=== PATIENT | female | born 1985 | race Caucasian/White ===

== ENCOUNTER 2017-02-04 12:13 | Emergency (ER) | payer SELFPAY | END 2017-02-04 13:33 | disposition home or self-care (01) | LOC: ERS 12:13 | DX: L02.211 Cutaneous abscess of abdominal wall (principal); F32.9 Major depressive disorder, single episode, unspecified | CPT/HCPCS: 87070; 87077; 87186; 87205; 99284 ==

== ENCOUNTER 2017-04-25 21:02 | Inpatient (IN) | payer SELFPAY ==
[~2017-04-25 21:02] MED LIST: ISOVUE-370 76%-LOCM 1 ML ONE
[2017-04-25 22:13] LABS: #Eosinphils 0.2 thou/uL (0.0-0.7); #Lymphocytes 4.1 thou/uL (1.20-3.40); #Monocytes 0.6 thou/uL (0.11-0.59); %Basophils 0.5 % (0.0-1.0); %Eosinophils 2.7 % (0.0-10.0); %Lymphocytes 45.7 % (21.0-51.0); %Monocytes 6.5 % (0.0-10.0); %Neutrophils 44.6 % (42.0-75.0); Hemoglobin 10.9 g/dL (12.0-16.0); Mean Corpuscular HGB CONC 32.9 g/dL (32.0-36.0); Mean Corpuscular Hemoglobin 27.6 pg (27.0-31.0); Mean Platelet Volume 6.2 fL (7.4-10.4); Platelet Count 425 thou/uL (130-400); RBC Distribution Width 14.1 % (11.5-14.5); Red Blood Cell (RBC) Count 3.96 mill/uL (4.20-5.40); White Blood Cell (WBC) Count 8.9 thou/uL (4.8-10.8)
[2017-04-25 22:24] LABS: BHCG - Serum Negative (NEGATIVE); Pregs Control Background? CLEAR/WHITE (CLR/WHITE); Pregs Control Bar Appear? YES (CONTROL BAR)
[2017-04-25 22:33] LABS: Anion Gap 12 mmol/L (10-20); BUN (Urea Nitrogen) 13 mg/dL (7.0-18.7); Calc. Creatinine Clearance 0 mL/min (70-130); Calcium 8.9 mg/dL (7.8-10.44); Carbon Dioxide 24 mmol/L (22-29); Chloride 107 mmol/L (98-107); Estimated GFR-MDRD 85; Glucose 126 mg/dL (70-105); Potassium 3.4 mmol/L (3.5-5.1); Sodium 140 mmol/L (136-145)
[2017-04-26] MEDS ORDERED: Acetaminophen 325 MG TAB PO PRN (01:36)
[2017-04-26] MEDS ORDERED: Ondansetron ODT 4 MG TAB SL PRN (01:36)
[2017-04-26] MEDS ORDERED: Ondansetron HCl/PF 4 MG/2 ML Vial IVP PRN (01:36)
[2017-04-26] MEDS ORDERED: Ketorolac Tromethamine 30 MG/ML VIAL IVP PRN (01:39)
[2017-04-26 01:49] VITALS: BMI 31.8
[2017-04-26] MEDS: Piperacillin/Tazobactam 3.375 GM in Sodium Chloride 0.9% 100 ML IVPB SCH ×2 (02:30→08:37)
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
[2017-04-26] MEDS ORDERED: traMADol HCl 50 MG TAB PO PRN (11:38)
[2017-04-26] MEDS ORDERED: Vancomycin HCl 1 GM in Premix Bag 1 BAG IVPB SCH (12:00)
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
[2017-04-26] MEDS: Ketorolac Tromethamine 30 MG/ML VIAL IVP PRN ×2 (15:19→22:01)
[2017-04-27] MEDS ORDERED: FLU VACC QS2017-18 36 mo. & older 0.5 ML SYRINGE IM ONE (09:00)
[2017-04-27] MEDS: Ketorolac Tromethamine 30 MG/ML VIAL IVP PRN ×2 (10:02→16:31)
[2017-04-28] MEDS: Ketorolac Tromethamine 30 MG/ML VIAL IVP PRN ×2 (05:58→20:06)
[2017-04-28] MEDS ORDERED: Midazolam HCl 2 mg/2 ml Vial ONE ×2 (12:38→18:03)
[2017-04-28] MEDS ORDERED: Fentanyl 250 MCG/5 ML VIAL ONE (12:38)
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
[2017-04-28] MEDS ORDERED: Propofol 200 MG/20 ML VIAL ONE (14:53)
[2017-04-28] MEDS: Vancomycin HCl 1.5 GM in Sodium Chloride 0.9% 250 ML 300 ML IVPB SCH (17:07)
[2017-04-28] MEDS ORDERED: Ondansetron HCl/PF 4 MG/2 ML Vial IVP PRN (18:06)
[2017-04-28] MEDS ORDERED: Promethazine HCl 25 MG/ML VIAL IM PRN (18:06)
[2017-04-28] MEDS ORDERED: Promethazine HCl 25 MG/ML VIAL SLOW IVP PRN (18:06)
[2017-04-28] MEDS ORDERED: Meperidine HCl/PF 25 MG/ML VIAL ONE (18:06)
[2017-04-28] MEDS ORDERED: HYDROmorphone 2 MG/ML VIAL SLOW IVP PRN (18:06)
[2017-04-28] MEDS ORDERED: HYDROmorphone 0.5 MG/0.5 ML SYRINGE ONE ×3 (18:12→18:51)
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
[2017-04-28] MEDS: HYDROcodone/Acetaminophen 10/325 mg Tablet PO PRN (20:05)
[2017-04-28] MEDS: Oxybutynin 5 MG TAB PO SCH (21:48)
[2017-04-28] MEDS: Fentanyl 100 MCG/2 ML VIAL SLOW IVP PRN (21:54)
[2017-04-28] MEDS: traMADol HCl 50 MG TAB PO PRN (23:18)
[2017-04-29] MEDS: Fentanyl 100 MCG/2 ML VIAL SLOW IVP PRN ×5 (00:58→21:43)
[2017-04-29] MEDS: Vancomycin HCl 1.5 GM in Sodium Chloride 0.9% 250 ML 300 ML IVPB SCH ×2 (01:00→13:19)
[2017-04-29] MEDS: HYDROcodone/Acetaminophen 10/325 mg Tablet PO PRN ×3 (02:25→18:14)
[2017-04-29] MEDS: Ketorolac Tromethamine 30 MG/ML VIAL IVP PRN ×3 (02:26→18:13)
[2017-04-29] MEDS: traMADol HCl 50 MG TAB PO PRN ×3 (04:15→20:42)
[2017-04-29 06:07] LABS: #Eosinphils 0.1 thou/uL (0.0-0.7); #Lymphocytes 2.5 thou/uL (1.20-3.40); #Monocytes 0.6 thou/uL (0.11-0.59); #Neutrophils 5.4 thou/uL (1.40-6.50); %Basophils 0.3 % (0.0-1.0); %Eosinophils 1.2 % (0.0-10.0); %Lymphocytes 29.2 % (21.0-51.0); %Monocytes 6.5 % (0.0-10.0); %Neutrophils 62.7 % (42.0-75.0); Hemoglobin 8.8 g/dL (12.0-16.0); Mean Corpuscular HGB CONC 32.2 g/dL (32.0-36.0); Mean Corpuscular Hemoglobin 27.3 pg (27.0-31.0); Mean Platelet Volume 6.1 fL (7.4-10.4); Platelet Count 353 thou/uL (130-400); RBC Distribution Width 14.1 % (11.5-14.5); Red Blood Cell (RBC) Count 3.23 mill/uL (4.20-5.40); White Blood Cell (WBC) Count 8.5 thou/uL (4.8-10.8)
[2017-04-29] MEDS: Oxybutynin 5 MG TAB PO SCH ×3 (06:28→20:42)
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
--- NOTE | 2017-04-29 12:56 | SPC ---
PICC PLACEMENT ULTRASOUND GUIDED VENOUS ACCESS: (Peripherally Inserted Central Catheter) DATE: 04/29/15. HISTORY: A 31 year-old female with osteomyelitis of the pubis with associated superficial soft tissue abscess anterior to the symphysis pubis, requiring long-term IV antibiotics. TECHNIQUE: Catheter caliber: 5 Moldovan. Catheter trim length: 43.5 cm. Catheter lumen number: single. Catheter tip location: superior vena cava/right atrial junction. Vein accessed: left basilic. Signed, informed consent was obtained. A tourniquet was applied at the proximal aspect of the arm. The arm was prepared and draped in the usual sterile fashion. A 25 gauge needle was used to apply bu ffered lidocaine superficially. The vein was punctured with a 21 gauge micropuncture needle under ul trasound guidance. A 0.018 inch guide wire was advanced through the micropuncture needle and into th e vein. Under fluoroscopic guidance, the guide wire was advanced to the right atrium. The PICC (per ipherally inserted central catheter) was flushed and trimmed to the appropriate length. The skin pun cture hole was widened with a blade. The micropuncture needle was exchanged over the guide wire for a 5 Moldovan peel-away dilator sheath. The dilator was exchanged over the guide wire for the PICC, whi ch was then further advanced under fluoroscopy. The sheath and guide wire were removed. The PICC wa s flushed again and secured in place at the arm. The patient tolerated the procedure well. There wa s no complication. IMPRESSION: Successful placement of PICC (peripherally inserted central catheter) roma [] POS: [facility]
[2017-04-29] MEDS ORDERED: Docusate 100 MG CAP PO SCH (14:15)
[2017-04-29] MEDS ORDERED: Heparin 1,000 UNITS/ML VIAL ONE (16:15)
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
[2017-04-29] MEDS: Docusate 100 MG CAP PO SCH (20:42)
[2017-04-30] MEDS: HYDROcodone/Acetaminophen 10/325 mg Tablet PO PRN ×4 (00:20→23:12)
[2017-04-30] MEDS: Ketorolac Tromethamine 30 MG/ML VIAL IVP PRN ×4 (00:21→21:53)
[2017-04-30] MEDS: Vancomycin HCl 1.5 GM in Sodium Chloride 0.9% 250 ML 300 ML IVPB SCH ×3 (02:05→19:52)
[2017-04-30] MEDS: traMADol HCl 50 MG TAB PO PRN ×3 (03:57→21:53)
[2017-04-30] MEDS: Fentanyl 100 MCG/2 ML VIAL SLOW IVP PRN ×4 (04:53→19:52)
[2017-04-30] MEDS: Oxybutynin 5 MG TAB PO SCH ×3 (04:54→19:53)
[2017-04-30 06:21] LABS: #Eosinphils 0.2 thou/uL (0.0-0.7); #Lymphocytes 1.7 thou/uL (1.20-3.40); #Monocytes 0.7 thou/uL (0.11-0.59); #Neutrophils 5.4 thou/uL (1.40-6.50); %Basophils 0.1 % (0.0-1.0); %Eosinophils 2.8 % (0.0-10.0); %Lymphocytes 21.3 % (21.0-51.0); %Monocytes 8.1 % (0.0-10.0); %Neutrophils 67.7 % (42.0-75.0); Hemoglobin 8.8 g/dL (12.0-16.0); Mean Corpuscular HGB CONC 31.5 g/dL (32.0-36.0); Mean Corpuscular Hemoglobin 27.2 pg (27.0-31.0); Mean Corpuscular Volume 86.4 fl (81.0-99.0); Mean Platelet Volume 6.2 fL (7.4-10.4); Platelet Count 308 thou/uL (130-400); RBC Distribution Width 14.3 % (11.5-14.5); Red Blood Cell (RBC) Count 3.23 mill/uL (4.20-5.40)
[2017-04-30] MEDS: Docusate 100 MG CAP PO SCH ×2 (09:19→19:53)
[2017-04-30] MEDS: B & O PR PRN (18:47)
[2017-05-01] MEDS: Fentanyl 100 MCG/2 ML VIAL SLOW IVP PRN ×2 (02:08→20:26)
[2017-05-01] MEDS: Ketorolac Tromethamine 30 MG/ML VIAL IVP PRN ×2 (03:25→10:17)
[2017-05-01] MEDS: Vancomycin HCl 1.5 GM in Sodium Chloride 0.9% 250 ML 300 ML IVPB SCH ×2 (06:15→15:01)
[2017-05-01] MEDS: Oxybutynin 5 MG TAB PO SCH ×3 (06:16→20:27)
[2017-05-01] MEDS: HYDROcodone/Acetaminophen 10/325 mg Tablet PO PRN ×4 (06:16→23:04)
[2017-05-01 07:27] LABS: #Basophils 0.1 thou/uL (0.0-0.2); #Eosinphils 0.2 thou/uL (0.0-0.7); #Lymphocytes 2.4 thou/uL (1.20-3.40); #Monocytes 0.5 thou/uL (0.11-0.59); #Neutrophils 3.7 thou/uL (1.40-6.50); %Eosinophils 3.6 % (0.0-10.0); %Lymphocytes 34.3 % (21.0-51.0); %Monocytes 6.7 % (0.0-10.0); %Neutrophils 54.5 % (42.0-75.0); Hemoglobin 8.5 g/dL (12.0-16.0); Mean Corpuscular HGB CONC 32.3 g/dL (32.0-36.0); Mean Corpuscular Hemoglobin 27.5 pg (27.0-31.0); Mean Corpuscular Volume 85.1 fl (81.0-99.0); Mean Platelet Volume 6.3 fL (7.4-10.4); Platelet Count 310 thou/uL (130-400); RBC Distribution Width 14.1 % (11.5-14.5); Red Blood Cell (RBC) Count 3.08 mill/uL (4.20-5.40); White Blood Cell (WBC) Count 6.9 thou/uL (4.8-10.8)
[2017-05-01] MEDS: Docusate 100 MG CAP PO SCH ×2 (08:19→20:33)
[2017-05-01] MEDS: traMADol HCl 50 MG TAB PO PRN (08:19)
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
[2017-05-01 13:49] LABS: Vancomycin, Trough 33.2 ug/mL
[2017-05-01] MEDS: Phenazopyridine HCl 97.5 MG TABLET PO SCH ×2 (14:35→20:26)
[2017-05-01] MEDS ORDERED: Vancomycin HCl 1.5 GM in Sodium Chloride 0.9% 250 ML 300 ML IVPB SCH (22:00)
[2017-05-02] MEDS: Fentanyl 100 MCG/2 ML VIAL SLOW IVP PRN ×4 (01:15→23:33)
[2017-05-02] MEDS: Vancomycin HCl 1 GM in Premix Bag 1 BAG IVPB SCH ×3 (03:19→18:14)
[2017-05-02] MEDS: B & O PR PRN ×2 (04:12→12:13)
[2017-05-02] MEDS: Oxybutynin 5 MG TAB PO SCH ×3 (06:46→20:36)
[2017-05-02] MEDS: Docusate 100 MG CAP PO SCH ×2 (08:46→20:36)
[2017-05-02] MEDS: HYDROcodone/Acetaminophen 10/325 mg Tablet PO PRN ×2 (08:46→20:35)
[2017-05-02] MEDS: Phenazopyridine HCl 97.5 MG TABLET PO SCH ×3 (08:46→20:36)
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
[2017-05-03] MEDS ORDERED: VANCOMYCIN IVPB PRN (00:33)
[2017-05-03 01:28] LABS: Vancomycin, Trough 18.4 ug/mL
[2017-05-03] MEDS: Vancomycin HCl 1 GM in Premix Bag 1 BAG IVPB SCH ×3 (03:13→17:27)
[2017-05-03] MEDS: B & O PR PRN (03:37)
[2017-05-03] MEDS: Oxybutynin 5 MG TAB PO SCH ×3 (06:48→22:05)
[2017-05-03] MEDS: Fentanyl 100 MCG/2 ML VIAL SLOW IVP PRN ×5 (06:53→20:47)
[2017-05-03] MEDS: Phenazopyridine HCl 97.5 MG TABLET PO SCH ×3 (08:25→20:48)
[2017-05-03] MEDS: Docusate 100 MG CAP PO SCH ×2 (08:25→20:48)
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
[2017-05-03] MEDS: HYDROcodone/Acetaminophen 10/325 mg Tablet PO PRN (22:05)
[2017-05-04 01:52] LABS: Vancomycin, Trough 17.9 ug/mL
[2017-05-04] MEDS: Vancomycin HCl 1 GM in Premix Bag 1 BAG IVPB SCH ×3 (02:06→17:53)
[2017-05-04] MEDS: Fentanyl 100 MCG/2 ML VIAL SLOW IVP PRN (02:10)
[2017-05-04] MEDS: Oxybutynin 5 MG TAB PO SCH ×3 (05:26→20:41)
[2017-05-04] MEDS: HYDROcodone/Acetaminophen 10/325 mg Tablet PO PRN ×2 (05:26→10:27)
[2017-05-04] MEDS ORDERED: Magnesium Citrate 300 ML BOT PO SCH (09:00)
[2017-05-04] MEDS: Phenazopyridine HCl 97.5 MG TABLET PO SCH ×3 (10:21→20:41)
[2017-05-04] MEDS: Docusate 100 MG CAP PO SCH ×2 (10:21→20:41)
[2017-05-04] MEDS: Nicotine 14 MG PATCH TD SCH (10:26)
[2017-05-04] MEDS: Ketorolac Tromethamine 30 MG/ML VIAL IVP PRN ×3 (11:46→23:48)
[2017-05-05] MEDS: Vancomycin HCl 1 GM in Premix Bag 1 BAG IVPB SCH ×2 (02:15→11:23)
[2017-05-05] MEDS: HYDROcodone/Acetaminophen 10/325 mg Tablet PO PRN ×3 (03:26→18:45)
[2017-05-05] MEDS: Oxybutynin 5 MG TAB PO SCH ×3 (06:07→21:22)
[2017-05-05] MEDS: Ketorolac Tromethamine 30 MG/ML VIAL IVP PRN ×3 (06:08→18:46)
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
[2017-05-05] MEDS: Phenazopyridine HCl 97.5 MG TABLET PO SCH ×3 (09:00→21:22)
[2017-05-05] MEDS: Docusate 100 MG CAP PO SCH ×2 (09:01→21:22)
[2017-05-05] MEDS: Nicotine 14 MG PATCH TD SCH (09:01)
[2017-05-05] MEDS: Fentanyl 100 MCG/2 ML VIAL SLOW IVP PRN (09:07)
[2017-05-05 09:47] LABS: Vancomycin, Trough 22.8 ug/mL
[2017-05-05] MEDS: Vancomycin HCl 750 MG in Sodium Chloride 0.9% 250 ML 250 ML IVPB SCH (21:21)
[2017-05-06] MEDS: Ketorolac Tromethamine 30 MG/ML VIAL IVP PRN ×3 (00:33→18:07)
[2017-05-06] MEDS: Vancomycin HCl 750 MG in Sodium Chloride 0.9% 250 ML 250 ML IVPB SCH ×3 (05:02→20:29)
[2017-05-06] MEDS: Oxybutynin 5 MG TAB PO SCH ×3 (05:02→20:29)
[2017-05-06 08:15] LABS: #Basophils 0.1 thou/uL (0.0-0.2); #Eosinphils 0.4 thou/uL (0.0-0.7); #Lymphocytes 2.5 thou/uL (1.20-3.40); #Monocytes 0.5 thou/uL (0.11-0.59); #Neutrophils 2.6 thou/uL (1.40-6.50); %Basophils 1.2 % (0.0-1.0); %Eosinophils 6.5 % (0.0-10.0); %Lymphocytes 40.9 % (21.0-51.0); %Monocytes 8.1 % (0.0-10.0); %Neutrophils 43.4 % (42.0-75.0); Hemoglobin 10.6 g/dL (12.0-16.0); Mean Corpuscular Hemoglobin 26.5 pg (27.0-31.0); Mean Corpuscular Volume 85.4 fl (81.0-99.0); Mean Platelet Volume 6.2 fL (7.4-10.4); Platelet Count 418 thou/uL (130-400); RBC Distribution Width 14.3 % (11.5-14.5); Red Blood Cell (RBC) Count 3.99 mill/uL (4.20-5.40)
[2017-05-06] MEDS: Docusate 100 MG CAP PO SCH ×2 (09:41→20:29)
[2017-05-06] MEDS: Nicotine 14 MG PATCH TD SCH (09:41)
[2017-05-06] MEDS: Phenazopyridine HCl 97.5 MG TABLET PO SCH ×3 (09:41→20:29)
[2017-05-06] MEDS: HYDROcodone/Acetaminophen 10/325 mg Tablet PO PRN (18:15)
[2017-05-06 19:26] LABS: Vancomycin, Trough 17.8 ug/mL
[2017-05-07] MEDS: Ketorolac Tromethamine 30 MG/ML VIAL IVP PRN ×4 (00:20→21:18)
[2017-05-07] MEDS: Oxybutynin 5 MG TAB PO SCH ×3 (05:27→21:20)
[2017-05-07] MEDS: Vancomycin HCl 750 MG in Sodium Chloride 0.9% 250 ML 250 ML IVPB SCH ×3 (05:27→20:56)
[2017-05-07] MEDS: HYDROcodone/Acetaminophen 10/325 mg Tablet PO PRN ×3 (05:30→17:50)
[2017-05-07] MEDS: Phenazopyridine HCl 97.5 MG TABLET PO SCH ×3 (07:55→21:20)
[2017-05-07] MEDS: Docusate 100 MG CAP PO SCH ×2 (07:55→21:20)
[2017-05-07] MEDS: Nicotine 14 MG PATCH TD SCH (07:56)
[2017-05-07] MEDS ORDERED: Magnesium Citrate 300 ML BOT PO SCH (17:15)
[2017-05-07 20:26] LABS: Vancomycin, Trough 15.7 ug/mL
[2017-05-08] MEDS: Vancomycin HCl 750 MG in Sodium Chloride 0.9% 250 ML 250 ML IVPB SCH ×3 (03:04→22:22)
[2017-05-08] MEDS: Ketorolac Tromethamine 30 MG/ML VIAL IVP PRN ×3 (04:22→18:12)
[2017-05-08] MEDS: Oxybutynin 5 MG TAB PO SCH ×3 (05:39→21:27)
[2017-05-08] MEDS: HYDROcodone/Acetaminophen 10/325 mg Tablet PO PRN ×2 (10:27→15:46)
[2017-05-08] MEDS: Docusate 100 MG CAP PO SCH ×2 (10:28→21:27)
[2017-05-08] MEDS: Phenazopyridine HCl 97.5 MG TABLET PO SCH ×3 (10:28→21:27)
[2017-05-08] MEDS: Nicotine 14 MG PATCH TD SCH (10:29)
[2017-05-09] MEDS: Vancomycin HCl 750 MG in Sodium Chloride 0.9% 250 ML 250 ML IVPB SCH ×3 (06:04→21:05)
[2017-05-09] MEDS: Oxybutynin 5 MG TAB PO SCH ×3 (06:05→21:07)
[2017-05-09] MEDS: Ketorolac Tromethamine 30 MG/ML VIAL IVP PRN (06:09)
[2017-05-09] MEDS: Nicotine 14 MG PATCH TD SCH (09:25)
[2017-05-09] MEDS: Docusate 100 MG CAP PO SCH ×2 (09:25→23:57)
[2017-05-09] MEDS: Phenazopyridine HCl 97.5 MG TABLET PO SCH ×3 (09:57→21:07)
[2017-05-09 11:44] LABS: Vancomycin, Trough 19.6 ug/mL
[2017-05-09] MEDS ORDERED: HYDROcodone/Acetaminophen 10/325 mg Tablet PO PRN (12:05)
[2017-05-09] MEDS: HYDROcodone/Acetaminophen 10/325 mg Tablet PO PRN (21:06)
[2017-05-10] MEDS: HYDROcodone/Acetaminophen 10/325 mg Tablet PO PRN ×2 (05:15→19:56)
[2017-05-10] MEDS: Vancomycin HCl 750 MG in Sodium Chloride 0.9% 250 ML 250 ML IVPB SCH ×3 (05:15→19:55)
[2017-05-10] MEDS: Oxybutynin 5 MG TAB PO SCH ×3 (05:16→21:48)
[2017-05-10] MEDS: Nicotine 14 MG PATCH TD SCH (08:16)
[2017-05-10] MEDS: Docusate 100 MG CAP PO SCH ×2 (08:16→19:57)
[2017-05-10] MEDS: Phenazopyridine HCl 97.5 MG TABLET PO SCH ×3 (09:02→19:56)
[2017-05-11] MEDS: Vancomycin HCl 750 MG in Sodium Chloride 0.9% 250 ML 250 ML IVPB SCH ×3 (05:01→20:36)
[2017-05-11] MEDS: Oxybutynin 5 MG TAB PO SCH ×3 (05:01→21:32)
[2017-05-11] MEDS: HYDROcodone/Acetaminophen 10/325 mg Tablet PO PRN ×3 (06:28→20:37)
[2017-05-11] MEDS: Docusate 100 MG CAP PO SCH ×2 (08:42→20:37)
[2017-05-11] MEDS: Nicotine 14 MG PATCH TD SCH (08:42)
[2017-05-11] MEDS: CeleCOXIB 100 MG CAP PO SCH ×2 (08:52→20:37)
[2017-05-11] MEDS: Phenazopyridine HCl 97.5 MG TABLET PO SCH ×3 (08:53→20:36)
[2017-05-11 11:58] LABS: Vancomycin, Trough 17.6 ug/mL
[2017-05-12] MEDS: Vancomycin HCl 750 MG in Sodium Chloride 0.9% 250 ML 250 ML IVPB SCH ×3 (04:40→21:38)
[2017-05-12] MEDS: HYDROcodone/Acetaminophen 10/325 mg Tablet PO PRN ×2 (04:43→16:07)
[2017-05-12] MEDS: Oxybutynin 5 MG TAB PO SCH ×3 (05:26→21:39)
[2017-05-12] MEDS: CeleCOXIB 100 MG CAP PO SCH ×2 (10:58→21:39)
[2017-05-12] MEDS: Docusate 100 MG CAP PO SCH ×2 (10:58→21:39)
[2017-05-12] MEDS: traMADol HCl 50 MG TAB PO PRN ×2 (10:58→21:38)
[2017-05-12] MEDS: Phenazopyridine HCl 97.5 MG TABLET PO SCH ×3 (11:00→21:39)
[2017-05-12] MEDS: Nicotine 14 MG PATCH TD SCH (11:00)
[2017-05-13] MEDS: Vancomycin HCl 750 MG in Sodium Chloride 0.9% 250 ML 250 ML IVPB SCH ×3 (04:44→20:37)
[2017-05-13] MEDS: Oxybutynin 5 MG TAB PO SCH ×3 (05:13→20:37)
[2017-05-13] MEDS: Nicotine 14 MG PATCH TD SCH (10:53)
[2017-05-13] MEDS: HYDROcodone/Acetaminophen 10/325 mg Tablet PO PRN (10:53)
[2017-05-13] MEDS: CeleCOXIB 100 MG CAP PO SCH ×2 (10:53→20:37)
[2017-05-13] MEDS: Phenazopyridine HCl 97.5 MG TABLET PO SCH ×3 (10:53→20:37)
[2017-05-13] MEDS: Docusate 100 MG CAP PO SCH ×2 (10:53→20:37)
[2017-05-13 11:30] LABS: Vancomycin, Trough 17.9 ug/mL
[2017-05-14] MEDS: Oxybutynin 5 MG TAB PO SCH (04:41)
[2017-05-14] MEDS: HYDROcodone/Acetaminophen 10/325 mg Tablet PO PRN (04:41)
[2017-05-14] MEDS: Vancomycin HCl 750 MG in Sodium Chloride 0.9% 250 ML 250 ML IVPB SCH (04:41)
[2017-05-14 08:34] VITALS: BP 114/63; TEMP 98.4
[2017-05-14] MEDS: Docusate 100 MG CAP PO SCH (08:48)
[2017-05-14] MEDS: Phenazopyridine HCl 97.5 MG TABLET PO SCH (08:48)
[2017-05-14] MEDS: CeleCOXIB 100 MG CAP PO SCH (08:48)
== END 2017-05-14 11:05 | disposition short-term general hospital (02) | DRG 496 ==
LOC: ERS 21:02 → SURG A 04-26 01:34 → OBSVTOIN 04-26 01:34 → INTOOBSV 04-26 01:34
PROVIDERS: ADMIT Specialist; ATTEND Orthopaedic Surgery
PROC: 0QP304Z Removal of Internal Fixation Device from Left Pelvic Bone, Open Approach (ICD-10-PCS; 2017-04-28)
PROC: 0QP204Z Removal of Internal Fixation Device from Right Pelvic Bone, Open Approach (ICD-10-PCS; 2017-04-28)
PROC: 0TQB0ZZ Repair Bladder, Open Approach (ICD-10-PCS; 2017-04-28)
PROC: 02HV33Z Insertion of Infusion Device into Superior Vena Cava, Percutaneous Approach (ICD-10-PCS; principal; 2017-04-29)
PROC: B518YZA Fluoroscopy of Superior Vena Cava using Other Contrast, Guidance (ICD-10-PCS; 2017-04-29)
DX: T84.69XA Infection and inflammatory reaction due to internal fixation device of other site, initial encounter (principal); T81.31XA Disruption of external operation (surgical) wound, not elsewhere classified, initial encounter; M86.68 Other chronic osteomyelitis, other site; K56.7 Ileus, unspecified; T81.4XXA Infection following a procedure, initial encounter; N99.71 Accidental puncture and laceration of a genitourinary system organ or structure during a genitourinary system procedure; F17.210 Nicotine dependence, cigarettes, uncomplicated; B99.8 Other infectious disease; B95.62 Methicillin resistant Staphylococcus aureus infection as the cause of diseases classified elsewhere; F32.9 Major depressive disorder, single episode, unspecified; Y79.3 Surgical instruments, materials and orthopedic devices (including sutures) associated with adverse incidents; Z75.1 Person awaiting admission to adequate facility elsewhere; N32.89 Other specified disorders of bladder; N73.8 Other specified female pelvic inflammatory diseases; Y83.8 Other surgical procedures as the cause of abnormal reaction of the patient, or of later complication, without mention of misadventure at the time of the procedure; N99.4 Postprocedural pelvic peritoneal adhesions
CPT/HCPCS: 36415; 36569; 72170; 72190; 74177; 80048; 80202; 83605; 84703; 85025; 85652; 86140; 86850; 86900; 86901; 87070; 87077; 87186; 87205; 96365; 96374; 99406; A4216; C1751; J1170; J1642; J1644; J1885; J2175; J2250; J2543; J2704; J3010; J3370; J7050

== ENCOUNTER 2017-05-28 17:17 | Emergency (ER) | payer SELFPAY ==
[~2017-05-28 17:17] MED LIST changes: +Iopamidol 370 76% 50 ML VIAL FS ONE
[2017-05-28 21:34] LABS: Bilirubin Negative (Negative); Blood, Urine Large (Negative); Clarity CLOUDY (Clear); Glucose, Urine (Dipstick) Negative (Negative); Leukocyte Large (Negative); Nitrite Positive (Negative); Protein, Urine (Dipstick) 30 mg/dL (Neg-Trace); Specific Gravity, Urine 1.024 (1.002-1.036); Urobilinogen 0.2 mg/dL (0.2-1.0)
[2017-05-28 21:37] LABS: Bacteria/HPF 4+ HPF (None Seen); Hyaline Casts/LPF 0-3 HYALINE CAST LPF (0-3 Hyaline); Squamous Epithelial None Seen HPF (0-3)
[2017-05-28 21:38] LABS: Yeast-AUWi Flag 25.7 (0-25.0)
[2017-05-28 21:48] LABS: Yeast-All Forms None Seen HPF (None Seen)
--- NOTE | 2017-05-28 21:52 | RAD ---
AP PELVIS: 05/28/17 HISTORY: Assess Pereira catheter. Contrast is injected through an indwelling Pereira catheter. The bladder contour is normal. The Pereira catheter appears normally positioned and normally functionin g based on this post injection film. Bowel gas pattern unremarkable. Postoperative changes in the sac rum. Deformity of the pelvis from old injury. IMPRESSION: Bladder contour is normal indicating normal position and function of the Pereira catheter. POS: [facility]
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
[2017-05-28 22:58] LABS: Hemoglobin 10.1 g/dL (12.0-16.0); Mean Corpuscular HGB CONC 31.4 g/dL (32.0-36.0); Mean Corpuscular Hemoglobin 26.2 pg (27.0-31.0); Mean Corpuscular Volume 83.5 fl (81.0-99.0); Mean Platelet Volume 6.7 fL (7.4-10.4); Platelet Count 355 thou/uL (130-400); RBC Distribution Width 15.3 % (11.5-14.5); Red Blood Cell (RBC) Count 3.85 mill/uL (4.20-5.40); White Blood Cell (WBC) Count 7.8 thou/uL (4.8-10.8)
[2017-05-28 23:11] LABS: ALT (SGPT) 8 U/L (8-55); AST (SGOT) 12 U/L (5-34); Albumin 3.7 g/dL (3.5-5.0); Alkaline Phosphatase 103 U/L (40-150); Anion Gap 15 mmol/L (10-20); BUN (Urea Nitrogen) 15 mg/dL (7.0-18.7); Bilirubin, Total 0.4 mg/dL (0.2-1.2); Calc. Creatinine Clearance 0 mL/min (70-130); Calcium 8.7 mg/dL (7.8-10.44); Carbon Dioxide 21 mmol/L (22-29); Chloride 103 mmol/L (98-107); Estimated GFR-MDRD Greater than 90; Globulin 2.7 g/dL (2.4-3.5); Glucose 116 mg/dL (70-105); Potassium 3.5 mmol/L (3.5-5.1); Protein, Total 6.4 g/dL (6.0-8.3); Sodium 135 mmol/L (136-145)
[2017-05-28 23:22] LABS: Band 5 % (5-11); Eosinophils 1 % (0-10); Lymphocytes 51 % (21-51); MDiff Complete? YES; Monocytes 4 % (0-10); Neutrophil 39 % (42-75)
== END 2017-05-28 23:45 | disposition home or self-care (01) ==
LOC: ERS 17:17
DX: N39.0 Urinary tract infection, site not specified (principal); N83.202 Unspecified ovarian cyst, left side; N83.201 Unspecified ovarian cyst, right side; F32.9 Major depressive disorder, single episode, unspecified; F17.210 Nicotine dependence, cigarettes, uncomplicated; Z71.6 Tobacco abuse counseling
CPT/HCPCS: 72170; 74177; 80053; 81003; 81015; 85025; 87077; 87086; 87186; 99406; J1642

== ENCOUNTER 2017-06-13 17:35 | Emergency (ER) | payer OTHER, SELFPAY ==
--- NOTE | 2017-06-13 18:21 | RAD ---
TWO VIEWS CHEST: History: Cough and congestion for one week. FINDINGS: Two views of the chest show normal sized cardiomediastinal silhouette. There is no evidence of consol idation, mass, or pleural effusion. The bones are unremarkable. The patient has an left upper extremi ty PICC line with its tip in the superior vena cava. IMPRESSION: No evidence of acute cardiopulmonary disease. POS: [facility]
== END 2017-06-13 19:11 | disposition home or self-care (01) ==
LOC: ERS 17:35
DX: J40 Bronchitis, not specified as acute or chronic (principal); F32.9 Major depressive disorder, single episode, unspecified; F17.210 Nicotine dependence, cigarettes, uncomplicated
CPT/HCPCS: 71046

== ENCOUNTER 2017-08-18 19:16 | Emergency (ER) | payer OTHER, SELFPAY | END 2017-08-18 20:56 | disposition home or self-care (01) | LOC: ERS 19:16 | DX: L97.929 Non-pressure chronic ulcer of unspecified part of left lower leg with unspecified severity (principal); L97.919 Non-pressure chronic ulcer of unspecified part of right lower leg with unspecified severity; L98.499 Non-pressure chronic ulcer of skin of other sites with unspecified severity; F15.10 Other stimulant abuse, uncomplicated; J45.909 Unspecified asthma, uncomplicated; F17.210 Nicotine dependence, cigarettes, uncomplicated | CPT/HCPCS: 99282 ==

== ENCOUNTER 2018-04-14 14:18 | Inpatient (IN) | payer MEDICAID, SELFPAY ==
[2018-04-14 16:08] LABS: ALT (SGPT) 20 U/L (8-55); AST (SGOT) 18 U/L (5-34); Albumin 3.3 g/dL (3.5-5.0); Alkaline Phosphatase 131 U/L (40-150); Anion Gap 15 mmol/L (10-20); BUN (Urea Nitrogen) 9 mg/dL (7.0-18.7); Bilirubin, Total 0.5 mg/dL (0.2-1.2); Calc. Creatinine Clearance 0 mL/min (70-130); Calcium 8.8 mg/dL (7.8-10.44); Carbon Dioxide 25 mmol/L (22-29); Chloride 93 mmol/L (98-107); Estimated GFR-MDRD Greater than 90; Glucose 106 mg/dL (70-105); Potassium 3.7 mmol/L (3.5-5.1); Protein, Total 7.3 g/dL (6.0-8.3); Sodium 129 mmol/L (136-145)
[2018-04-14 16:09] LABS: Mean Corpuscular Hemoglobin 24.5 pg (27.0-31.0); Mean Corpuscular Volume 74.4 fL (78.0-98.0); Mean Platelet Volume 7.6 fL (7.4-10.4); Platelet Count 364 thou/uL (130-400); RBC Distribution Width 17.2 % (11.5-14.5); Red Blood Cell (RBC) Count 4.49 mill/uL (4.20-5.40)
[2018-04-14 16:44] LABS: #Eosinphils 0.1 thou/uL (0.0-0.7); #Lymphocytes 2.1 thou/uL (1.20-3.40); #Monocytes 0.9 thou/uL (0.11-0.59); #Neutrophils 8.8 thou/uL (1.40-6.50); %Basophils 0.7 % (0.0-1.0); %Eosinophils 0.6 % (0.0-10.0); %Lymphocytes 17.5 % (21.0-51.0); %Monocytes 8.1 % (0.0-10.0); %Neutrophils 74.3 % (42.0-75.0); Anisocytosis SLIGHT = 6-15 cells (100X) (0-5/hpf); Hypochromia SLIGHT = 6-15 cells (100X) (0-5/hpf); MDiff Complete? YES; Microcytosis SLIGHT = 6-15 cells (100X) (0-5/hpf); PLT Morphology Comment Appears Adequate
[2018-04-14 17:07] LABS: Bilirubin Negative (Negative); Blood, Urine Large (Negative); Clarity CLOUDY (Clear); Glucose, Urine (Dipstick) Negative (Negative); Leukocyte Moderate (Negative); Nitrite Positive (Negative); Protein, Urine (Dipstick) 30 mg/dL (Neg-Trace); Specific Gravity, Urine 1.017 (1.002-1.036)
[2018-04-14 17:11] LABS: Bacteria/HPF 4+ HPF (None Seen); Hyaline Casts/LPF 0-3 HYALINE CAST LPF (0-3 Hyaline); Pathc Cast-AUWi Flag 0.14 (0-2.49); RBC/HPF 21-50 HPF (0-3)
[2018-04-14] MEDS ORDERED: Acetaminophen 500 MG TAB ONE (17:21)
[2018-04-14] MEDS ORDERED: Vancomycin HCl 1.5 GM in Sodium Chloride 0.9% 250 ML 300 ML IVPB SCH (17:30)
[2018-04-14] MEDS ORDERED: Piperacillin/Tazobactam 2.25 GM in Sodium Chloride 0.9% 100 ML IVPB SCH (17:30)
--- NOTE | 2018-04-14 18:03 | PDOC.FPRHP ---
- History of Present Illness Chief Complaint: vomiting/diarrhea History of Present Illness: Ms. Uribe presents to the ED after feeling bad for the past 5 days. She reports on wednesday she started having nausea, vomiting, diarrhea, temps as high as 103, and neck pain. She denies any chest pain, shortness of breath, or visual changes. She has a history of MRSA bacteriemia and hardware infection. She is an on again off again heroin user. She reports use of china white, laced with fentanyl. Denies skin popping or cleaning before injecting. The last time she used was 4 hours [employer]. She reports usually having withdrawal symptoms at about 4 hours. ED Course: CBC, CMP, CXR, LA, UA/UCx, BCx vanc, 1L NS - Allergies/Adverse Reactions Allergies Allergy/AdvReac Type Severity Reaction Status Date / Time No Known Allergies Allergy Verified 04/26/17 01:57 - Home Medications Medication Instructions Recorded Confirmed Type No Known 04/15/18 04/15/18 History - History PMHx: MRSA/endocarditis 2016 (PICC line DCd in jun 27), asthma PSHx: pelvic fracture repair- infected hardware FHx: cancer, asthma Social: current pack a day smoker, hx of IV drug abuse - Review of Systems General: reports: fever/chills, fatigue. denies: weight/appetite/sleep changes , night sweats Eyes: denies: eye pain, vision changes ENT: denies: nasal congestion Respiratory: denies: cough, congestion, shortness of breath Cardiovascular: denies: chest pain, palpitation, edema Gastrointestinal: reports: nausea, vomiting, diarrhea, abdominal pain. denies: constipation, GI bleeding Genitourinary: reports: dysuria. denies: incontinence Skin: denies: rashes, lesions Musculoskeletal: reports: pain, tenderness, arthritis/arthralgias Neurological: denies: numbness, syncope - Vital signs BP: 106/64 HR: 117 RR: 19 Tmax: 102.5 Pox: 98% on RA Wt: 59kg - Physical Exam Constitutional: NAD HEENT: normocephalic and atraumatic, grossly normal vision, grossly normal hearing Neck: supple, trachea midline, no LAD, other (nuchal rigidity, tenderness over cspine) Chest: no-tender to palpation, no lesions Heart: RRR, other (murmur present) Lungs: CTAB, no respiratory distress, good air movement Abdomen: soft, non-tender, no masses/distention Musculoskeletal: normal structure, ROM grossly normal Neurological: no focal deficit, CN II-XII intact Skin: no rash/lesions, good turgor Heme/Lymphatic: no unusual bruising or bleeding FMR H&P: Results - Labs Result Diagrams: 04/14/18 15:37 04/14/18 15:37 Lab results: WBC 12.0 thou/uL (4.8-10.8) H 04/14/18 15:37 Hgb 11.0 g/dL (12.0-16.0) L 04/14/18 15:37 Hct 33.4 % (36.0-47.0) L 04/14/18 15:37 MCV 74.4 fL (78.0-98.0) L 04/14/18 15:37 Plt Count 364 thou/uL (130-400) 04/14/18 15:37 Neutrophils % 74.3 % (42.0-75.0) 04/14/18 15:37 Sodium 129 mmol/L (136-145) L 04/14/18 15:37 Potassium 3.7 mmol/L (3.5-5.1) 04/14/18 15:37 Chloride 93 mmol/L (98-107) L 04/14/18 15:37 Carbon Dioxide 25 mmol/L (22-29) 04/14/18 15:37 BUN 9 mg/dL (7.0-18.7) 04/14/18 15:37 Creatinine 0.71 mg/dL (0.6-1.1) 04/14/18 15:37 Glucose 106 mg/dL (70-105) H 04/14/18 15:37 Lactic Acid 1.7 mmol/L (0.5-2.2) 04/14/18 15:37 Calcium 8.8 mg/dL (7.8-10.44) 04/14/18 15:37 Total Bilirubin 0.5 mg/dL (0.2-1.2) 04/14/18 15:37 AST 18 U/L (5-34) 04/14/18 15:37 ALT 20 U/L (8-55) 04/14/18 15:37 Alkaline Phosphatase 131 U/L (40-150) 04/14/18 15:37 Serum Total Protein 7.3 g/dL (6.0-8.3) 04/14/18 15:37 Albumin 3.3 g/dL (3.5-5.0) L 04/14/18 15:37 Urine Ketones Negative mg/dL (Negative) 04/14/18 16:55 Urine Blood Large (Negative) H 04/14/18 16:55 Urine Nitrite Positive (Negative) H 04/14/18 16:55 Ur Leukocyte Esterase Moderate (Negative) H 04/14/18 16:55 Urine RBC 21-50 HPF (0-3) H 04/14/18 16:55 Urine WBC Greater Than 50-TNTC HPF (0-3) H 04/14/18 16:55 Ur Squamous Epith Cells 4-6 HPF (0-3) H 04/14/18 16:55 Urine Bacteria 4+ HPF (None Seen) H 04/14/18 16:55 FMR H&P: A/P - Problem List (1) Sepsis secondary to UTI Status: Acute Code(s): A41.9 - SEPSIS, UNSPECIFIED ORGANISM; N39.0 - URINARY TRACT INFECTION, SITE NOT SPECIFIED (2) IV drug abuse Status: Acute Code(s): F19.10 - OTHER PSYCHOACTIVE SUBSTANCE ABUSE, UNCOMPLICATED (3) Opioid withdrawal Status: Acute Code(s): F11.23 - OPIOID DEPENDENCE WITH WITHDRAWAL (4) Asthma Status: Acute Code(s): J45.909 - UNSPECIFIED ASTHMA, UNCOMPLICATED - Plan Sepsis 2/2 UTI - WBC, tachy, febrile. UA +, UCx pending, BCx collected - concern for endocarditis, MRSA bacteremia - procal, TTE pending - Linda consult in AM, consider cards consult pending TTE - s/p 1L NS in ED. additional bolus, run LR 125 - empiric abx vanc + zosyn IVDA - monitor visitors, Narcan for opioid reversal - hx of MRSA bacteremia, see above Opiod withdrawal - monitor respiratory status, continuous O2 monitoring, O2 PRN - vital signs q4hr Asthma - aware, monitor - proair PRN Disposition/LOS: admit to telemetry for further evaluation of infectious sources FMR H&P: Upper Level - Pertinent history 32 y/o IVDU with Hx/o endocarditis(2016), MRSA bactremia this year presents with Fever, chills, nausea, vomiting for 3-4 days. States he does heroin and meth and has agitation withing 4hrs w/o use of opiod. Agree with [employer] Developer's HPI. - Pertinent findings I agree with consumer insights intern's exam findings. Additionally, NEURO: no nuchal rigidity. MAEW w/o focal deficits CARDIO: Tachycardic, 3/6 systolic murmur. - Plan Date/Time: 04/14/18 1801 I, [place] [facility], have evaluated this patient and agree with findings/plan as outlined by consumer insights intern resident. Pertinent changes/additions are listed here. 1. Sepsis 2/2 UTI - Also very concerned for bactremia/Endocarditis given IVDU and history. WBCs elevated, tachy, & febrile. S/p 1L NS in ED. Will give another bolus and MIVF and closely monitor vital signs on Telemetry floor. Broad spectrum empiric abx initiated. ED did not perform LP, but consider if sx not improving. No meningeal signs, although does have slight neck soreness. TTE orderd. She does have a chronic murmur and hx/o endocarditis 2yrs ago. - ID consult in AM, consider cardiology consult pending TTE. 2. Multisubstance Abuse- Admits to regular Opiod and Meth use. Will order UDS. Monitor for s/s of withdrawal and medicate as necessary. 3. History of Asthma - Inhaler as needed; no acute issues and will continue to monitor 4. Hyponatremia - unknown etiology. Will replete with NS and recheck in AM. Attending Addendum - Attending Addendum Date/Time: 04/18/18 5422 I personally evaluated the patient and discussed the management with Dr. Dubois at time of admission. I agree with the History, Examination, Assessment and Plan documented above with any addition or exceptions noted below. I did not find evidence of meningitis on exam at time of admission.
--- NOTE | 2018-04-14 19:56 | RAD ---
RADIOGRAPH CHEST 1 VIEW: Date: 04/14/18 Time: 4:34 p.m. HISTORY: 32-year-old female with cough and fever. COMPARISON: 06/13/17 FINDINGS: There is a new subtle finding of several faint nodular densities in the lateral aspect of the right l ower lung zone. No consolidation or pulmonary edema. Cardiomediastinal silhouette is normal. Lateral costophrenic angles are shape. No pneumothorax. IMPRESSION: 1. Possible right sided pulmonary nodules, perhaps representing a pulmonary infectious process w ith atypical organism. 2. Consider chest CT. ARELIS [] POS: [facility]
[2018-04-14] MEDS ORDERED: Senokot S 8.6-50 MG TAB PO PRN (21:54)
[2018-04-14] MEDS ORDERED: Acetaminophen 325 MG TAB PO PRN (21:54)
[2018-04-14] MEDS ORDERED: Naloxone HCl 0.4 mg/ml Vial IV PRN (21:54)
[2018-04-14] MEDS ORDERED: Nicotine 14 MG PATCH TD SCH (21:54)
[2018-04-14] MEDS ORDERED: Ondansetron PF 4 MG/2 ML Vial IVP PRN (21:54)
[2018-04-14] MEDS ORDERED: Ondansetron ODT 4 MG TAB PO PRN (21:54)
[2018-04-14] MEDS ORDERED: Bisacodyl 5 MG TAB PO PRN (21:54)
--- NOTE | 2018-04-14 22:30 | PDOC.EVN ---
Event Note - Event Note Event Note: Date/Time: 04/14/182226 I personally evaluated the patient and discussed the management with Dr. Dubois. H&P is pending. I agree with the History, Examination, Assessment and Plan as discussed. There was some concern for meningitis, as she has a headache. However, her headache has been present off and on for 5 days and on exam she has no nuchal rigidity or photophobia and is up walking around. Her exam is not consistent with meningitis. U suspect her infection source to be blood or urine.
[2018-04-14 22:43] LABS: BHCG - Serum Negative (NEGATIVE); Pregs Control Background? CLEAR/WHITE (CLR/WHITE); Pregs Control Bar Appear? YES (CONTROL BAR)
[2018-04-14] MEDS ORDERED: VANCOMYCIN IVPB PRN (22:53)
[2018-04-14] MEDS: Lactated Ringer's 1,000 ML IV SCH ×2 (23:06→23:36)
[2018-04-14 23:32] LABS: HIV (1/2) Antibody/Antigen Non-Reactive (NonReactive); HIV 1/2 INDEX 0.35 S/CO (<1.00); Hep B Surf Ag Non-Reactive S/CO (NonReactive)
[2018-04-14] MEDS: PROVENTIL INHALER 6.7 G (200 INHALATIONS) INH SCH (23:32)
[2018-04-14] MEDS: hydrOXYzine 25 MG TAB PO PRN (23:37)
[2018-04-15 00:06] VITALS: BMI 24.5
[2018-04-15] MEDS: Lactated Ringer's 1,000 ML IV SCH ×2 (00:49→11:36)
[2018-04-15] MEDS: Piperacillin/Tazobactam 3.375 GM in Sodium Chloride 0.9% 100 ML IVPB SCH ×3 (00:57→11:35)
[2018-04-15] MEDS: PROVENTIL INHALER 6.7 G (200 INHALATIONS) INH SCH ×4 (03:12→14:50)
--- NOTE | 2018-04-15 05:18 | PDOC.FM ---
- Subjective Subjective: Pt is threatening to leave AMA if her withdraw is not treated. She states she is having body aches that started started last night. She reports it has been a while since she has had loose stool. She denies headache, chest pain, SOB, or nausea/vomiting. - Objective MAR Reviewed: Yes Vital Signs & Weight: Vital Signs (12 hours) Temp Pulse Resp BP BP Pulse Ox 04/15/18 04:00 98.5 F 97 14 102/56 L 98 04/15/18 00:00 90 100/59 L 04/14/18 23:32 110 H 16 95 04/14/18 22:45 100.8 F H 115 H 16 114/56 L 94 L 04/14/18 22:00 101.2 F H 110 H 20 104/56 L 98 Weight Weight 66.763 kg Result Diagrams: 04/14/18 15:37 04/14/18 15:37 <Ken Scherer - Last Filed: 04/15/18 06:48> - Objective Vital Signs & Weight: Vital Signs (12 hours) Temp Pulse Resp BP BP Pulse Ox 04/15/18 08:30 99.4 F 109 H 20 112/64 97 04/15/18 04:00 98.5 F 97 14 102/56 L 98 04/15/18 00:00 90 100/59 L 04/14/18 23:32 110 H 16 95 04/14/18 22:45 100.8 F H 115 H 16 114/56 L 94 L Weight Weight 66.763 kg I&O: 04/14/18 04/15/18 04/16/18 06:59 06:59 06:59 Intake Total 2041 Output Total 1475 Balance 566 Result Diagrams: 04/14/18 15:37 04/14/18 15:37 <Charlie Forbes - Last Filed: 04/15/18 10:54> Phys Exam - Physical Examination Constitutional: NAD Pt was sleeping when I check on her this morning HEENT: moist MMs Neck: no JVD, full ROM Respiratory: no wheezing, clear to auscultation bilateral Cardiovascular: RRR holosystolic murmur Gastrointestinal: soft, non-tender, no distention, positive bowel sounds ( hyperactive) No CVA tenderness Musculoskeletal: no edema, pulses present Neurological: normal sensation, moves all 4 limbs Psychiatric: normal affect, A&O x 3 Skin: cap refill <2 seconds <Ken Scherer - Last Filed: 04/15/18 06:48> Dx/Plan (1) Sepsis Code(s): A41.9 - SEPSIS, UNSPECIFIED ORGANISM Status: Acute (2) UTI (urinary tract infection) Status: Acute (3) Asthma Code(s): J45.909 - UNSPECIFIED ASTHMA, UNCOMPLICATED Status: Acute (4) IV drug abuse Code(s): F19.10 - OTHER PSYCHOACTIVE SUBSTANCE ABUSE, UNCOMPLICATED Status: Acute (5) Opioid withdrawal Code(s): F11.23 - OPIOID DEPENDENCE WITH WITHDRAWAL Status: Acute - Plan Plan: This is a 32 yo female with a PMH of IVDA, asthma, MRSA/endocarditis in 2017 Sepsis likely secondary to endocarditis vs. UTI -On admission, WBC, tachy, febrile. UA positive with squamous cells, pending blood and urine cultures -Pt had endocarditis in 2017 and currently has a murmur suggestive of past or current infection -Procal negative, HIV negative -Pending TTE, will consult cardiology after this results -LR 125 -empiric Vanc and zosyn -No CVA tenderness IVDA -Monitor visitors, Narcan for opioid reversal -Hx of bacteremia as above -Clinical opiod Withdrawal Scale was a 9 putting her in the mild range. -We are giving 5mg of diazepam IV at this time. Asthma -Proair PRN Tobacco abuse -Nicotine patch <Ken Scherer - Last Filed: 04/15/18 06:48> Attending Addendum - Attending Addendum Date/Time: 04/15/18 1042 I personally evaluated the patient and discussed the management with Dr. Scherer I agree with the History, Examination, Assessment and Plan documented above with any addition or exceptions noted below. 32yo F here for sepsis 2/2 to UTI vs MRSA. Patient is a current IV drug user. Will manage withdrawal symptoms w/ diazepam and if needed can add methadone. Urine and blood cultures pending. Continue abx therapy. Narcan PRN. Echo pending. <Charlie Forbes - Last Filed: 04/15/18 10:54>
[2018-04-15] MEDS: hydrOXYzine 25 MG TAB PO PRN ×2 (05:53→14:18)
[2018-04-15] MEDS ORDERED: Vancomycin HCl 1.2 GM in Sodium Chloride 0.9% 250 ML 250 ML IVPB SCH (06:00)
[2018-04-15] MEDS ORDERED: Vancomycin HCl 1.25 GM in Sodium Chloride 0.9% 250 ML 250 ML IVPB SCH (06:00)
[2018-04-15] MEDS ORDERED: Diazepam 10 MG/2 ML SYRINGE IVP SCH (07:00)
[2018-04-15] MEDS ORDERED: Lorazepam 2 MG/ML VIAL SLOW IVP SCH (08:00)
[2018-04-15] MEDS ORDERED: Enoxaparin Sodium 40 MG/0.4 ML SYRINGE SC SCH (09:00)
[2018-04-15 11:43] VITALS: BP 120/60; TEMP 99.6
--- NOTE | 2018-04-16 14:39 | EKG ---
Test Reason : Blood Pressure : / mmHG Vent. Rate : 112 BPM Atrial Rate : 112 BPM P-R Int : 142 ms QRS Dur : 088 ms QT Int : 312 ms P-R-T Axes : 047 048 006 degrees QTc Int : 425 ms Sinus tachycardia Otherwise normal ECG Confirmed by SOTERO MARIA D.O. ([id number]), editorial director RJ BURR ([id number]) on 04/16/2018 2:38:59 PM Referred By: Confirmed By:SOTERO MARIA D.O.
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
== END 2018-04-15 16:30 | disposition left against medical advice (07) | DRG 872 ==
LOC: ERS 14:18 → T4-B 17:25 → 2NO 22:46
PROVIDERS: ADMIT Family Medicine; ATTEND Family Medicine
DX: A41.9 Sepsis, unspecified organism (principal); N39.0 Urinary tract infection, site not specified; F11.23 Opioid dependence with withdrawal; E87.1 Hypo-osmolality and hyponatremia; F17.210 Nicotine dependence, cigarettes, uncomplicated; J45.909 Unspecified asthma, uncomplicated; Z86.14 Personal history of Methicillin resistant Staphylococcus aureus infection
CPT/HCPCS: 36415; 36416; 71045; 80053; 81003; 81015; 83605; 84145; 84703; 85025; 87040; 87077; 87086; 87149; 87186; 87324; 87340; 87389; 87449; 87521; 87804; 93005; 93306; 96361; 96365; 96366; 96367; J1650; J2060; J2543; J3370; J7050